=== PATIENT | female | born 2000 | race Hispanic/Latino ===

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

== ENCOUNTER 2019-05-23 14:42 | Emergency (ER) | payer MEDICAID, OTHER ==
[2019-05-23] MEDS ORDERED: SODIUM CHLORIDE 0.9% 1000ML 1,000 ML IV ONE (15:21)
[2019-05-23] MEDS ORDERED: ONDANSETRON HCL 4 MG/2 ML VIAL ONE (15:22)
[2019-05-23] MEDS ORDERED: HYOSCYAMINE SULFATE 0.125 MG TAB.SUBL SL ONE (15:22)
[2019-05-23 15:29] LABS: APPEARANCE,URINE Clear (CLEAR); BILIRUBIN,URINE Negative (NEGATIVE); COLOR,URINE Yellow (YELLOW); GLUCOSE, URINE (UA) Negative (NEGATIVE); KETONES,URINE 15 mg/dL (NEGATIVE); LEUKOCYTE ESTERASE ,URINE Moderate (NEGATIVE); NITRATE,URINE Negative (NEGATIVE); OCCULT BLOOD,URINE Moderate (NEGATIVE); PH,URINE 5.5 (5.0-8.0); PROTEIN,URINE Negative (NEGATIVE)
[2019-05-23 15:31] LABS: HCG,QUAL RESULT NEGATIVE (NEGATIVE)
[2019-05-23 15:43] LABS: BASOPHILS % (AUTO) 0.6 % (0.0-5.0); EOSINOPHILS % (AUTO) 0.2 % (0.0-8.0); HEMATOCRIT 42.6 % (36-48); LYMPHOCYTES % (AUTO) 24.5 % (21.0-51.0); MEAN CORPUSCULAR HEMOGLOBIN 29.8 pg (27.0-33.0); MONOCYTES % (AUTO) 9.1 % (3.0-13.0); NEUTROPHILS % (AUTO) 65.6 % (40.0-77.0); PLATELET COUNT (AUTO) 171 K/uL (130-400); RED BLOOD CELL COUNT(AUTO) 5.02 MIL/uL (4.00-5.50); RED CELL DISTRIBUTION WIDTH 13.4 % (11.0-15.5)
[2019-05-23 15:45] LABS: BACTERIA,URINE Few /HPF (None Seen); SQUAMOUS EPITHELIAL CELL,UR Rare /HPF (0-2); TRANSITIONAL EPI CELLS,URINE Few /HPF (None Seen)
[2019-05-23 15:46] LABS: MUCUS,URINE Few LPF (None Seen)
[2019-05-23 15:59] LABS: CREATININE 0.7 mg/dL (0.5-1.5)
[2019-05-23 16:05] LABS: ALBUMIN 4.5 g/dL (3.5-5.0); BILIRUBIN,TOTAL 0.5 mg/dL (0.2-1.0); TOTAL PROTEIN, SERUM 7.8 g/dL (6.0-8.3)
== END 2019-05-23 16:44 | disposition home or self-care (01) ==
LOC: EDH 14:42
DX: N30.00 Acute cystitis without hematuria (principal); R11.2 Nausea with vomiting, unspecified; R10.9 Unspecified abdominal pain
CPT/HCPCS: 36415; 76705; 80053; 81001; 81025; 83690; 85025; 96361; 96374; 99285; J2405; J7030

== ENCOUNTER 2024-07-31 18:05 | Emergency (ER) | payer OTHER ==
[~2024-07-31] VITALS: Ht 160 cm; Wt 97.5 kg
--- NOTE | 2024-07-31 19:37 | HMCIMG ---
US OB >14 WEEKS HISTORY: Right lower quadrant pain COMPARISON: None TECHNIQUE: ultrasound study was performed. Right lower abdominal ultrasound study was performed. FINDINGS: There is single intrauterine gestation with estimated gestational age of 16 weeks. heart rate is 153 beats per minute. The fetus is in breech presentation with longitudinal lie. weight is estimated to be 172 grams. Amniotic fluid volume is 11 centimeter. The placenta is located anteriorly. No evidence of placenta previa is seen. There is no evidence of nuchal cord. Appendix is not seen limiting evaluation IMPRESSION: 1. There is single intrauterine gestation with estimated gestational age of 16 weeks. heart rate is 153 beats per minute.
[2024-07-31 19:57] LABS: BASOPHILS # (AUTO) 0.02 K/uL (0.00-0.20); BASOPHILS % (AUTO) 0.2 % (0.0-5.0); EOSINOPHILS # (AUTO) 0.04 K/uL (0.00-0.70); EOSINOPHILS % (AUTO) 0.4 % (0.0-8.0); HEMATOCRIT 39.6 % (36-48); IMMATURE GRANULOCYTE ABSOLUTE 0.03 K/uL (0-1); LYMPHOCYTES # (AUTO) 1.7 K/uL (1.0-4.8); LYMPHOCYTES % (AUTO) 15.1 % (21.0-51.0); MEAN CORPUSCULAR HEMOGLOBIN 30.1 pg (27.0-33.0); MEAN CORPUSCULAR HGB CONC 34.8 g/dL (32.0-36.0); MEAN CORPUSCULAR VOLUME 86.3 fL (79-99); MONOCYTES # (AUTO) 0.9 K/uL (0.1-1.0); MONOCYTES % (AUTO) 7.8 % (3.0-13.0); NEUTROPHILS # (AUTO) 8.4 K/uL (1.8-7.7); NEUTROPHILS % (AUTO) 76.2 % (40.0-77.0); PLATELET COUNT (AUTO) 234 K/uL (130-400); RED BLOOD CELL COUNT(AUTO) 4.59 MIL/uL (4.00-5.50); RED CELL DISTRIBUTION WIDTH 13.5 % (11.0-15.5)
[2024-07-31 20:04] LABS: CREATININE 0.5 mg/dL (0.5-1.0); POTASSIUM 3.9 mmol/L (3.5-5.1)
--- NOTE | 2024-07-31 21:49 | ERN ---
ED Note History of Present Illness Stated Complaint: 16 WKS,SEVERE GUTIERREZ,NAUSEA,LIGHT HEADED Chief Complaint: Syncope Time Seen by MD: 18:07 Time Seen by Midlevel: 18:11 Dictation: 23-year-old female with with a history of low iron coming in complaining of feeling lightheaded, headache a near syncopal episode while standing up at work. Patient states she saw black but was still hearing voices and was sat down by her coworkers. Patient also states she had a few episodes of nausea and vomiting in the morning. Patient states she is 16 weeks , her OBGYN is Dr. Robles the last seen on the 24 of July. LMP was in March. G1, P0. 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 Denies having any vaginal pain, vaginal discharge, vaginal bleeding. Allergies: Coded Allergies: No Known Allergies (Unverified Allergy, Unknown, 07/31/24) Home Meds Active Scripts Nitrofurantoin Monohyd/M-Cryst (Macrobid 100 mg Capsule) 100 Mg Capsule, 1 CAP PO BID for 7 Days, #14 CAP 0 Refills Prov:MARK DEWEY MD 07/31/24 Acetaminophen with Codeine (Acetaminophen-Cod #3 Tablet) 300 Mg-30 Mg Tablet, 1 TAB PO Q6HPRN PRN for pain for 7 Days, #28 TAB 0 Refills Prov:MARK DEWEY MD 07/31/24 Past Medical History Past Medical History: No Pertinent History Surgical History: None LMP: Apr 13, 2024 : 1 Para: 0 Aborts: 0 RN Note Reviewed/Agreed w/PFSH: Yes Review of System Dictation Constitutional: Negative for fever,chills, and weight loss Eyes: Negative for injury, pain,redness, and discharge ENT: Negative for injury,pain or swelling Cardiovascular: Negative for chest pain, palpitations, and edema Respiratory: Negative for shortness of breath, cough, and wheezing, Abdomen/GI: Negative for abdominal pain, nausea, vomiting, diarrhea, and constipation Back: Negative for injury and pain : Negative for injury, bleeding and discharge MS/Extremity: Negative for injury and deformity Skin: Negative for rash, and discoloration Neuro: Negative for headache, weakness, numbness, tingling, and seizure Psych: Negative for suicide ideation, homicidal ideation, and hallucinations Review of Systems: was completed Initial Vital Sign VS Vital Signs Date Time Temp Pulse Resp B/P (MAP) Pulse Ox O2 Delivery O2 Flow Rate FiO2 07/31/24 18:16 97.9 75 16 132/94 98 Room Air 0 07/31/24 22:55 21 Physical Exam Dictation General: awake, alert, NAD Head/Face: Normocephalic, atraumatic Eyes: PERRL, EOMI, vision at baseline ENT: oral cavity clear, TMs clear, no signs of infection Neck: Trachea midline, supple, no nuchal rigidity Cardiovascular: RRR, normal S1/S2, No MRGs, no JVD Respiratory: CTAB, no respiratory distress, No rales or wheezes Abdomen: Soft, non-tender, non-distended, normal bowel sounds, no guarding or rebound. Skin: Warm, dry, normal turgor, no rash MS/Extremity: Pulses equal, no cyanosis, neurovascular intact, FROM Neuro: COAx4, GCS 15, strength 5/5, CN 2-12 intact, normal cerebellar exam, normal gait, Psych: Normal behavior, mood, and affect normal Results (Laboratory/Radiology) Laboratory/Radiology Laboratory Tests Test 07/31/24 19:46 07/31/24 21:59 White Blood Count 11.0 K/uL (4.8-10.8) H Red Blood Count 4.59 MIL/uL (4.00-5.50) Hemoglobin 13.8 g/dL (12.0-16.0) Hematocrit 39.6 % (36-48) Mean Corpuscular Volume 86.3 fL (79-99) Mean Corpuscular Hemoglobin 30.1 pg (27.0-33.0) Mean Corpuscular Hemoglobin Concent 34.8 g/dL (32.0-36.0) Red Cell Distribution Width 13.5 % (11.0-15.5) Platelet Count 234 K/uL (130-400) Mean Platelet Volume 10.9 fL (7.5-10.5) H Immature Granulocyte % (Auto) 0.3 % (0-1) Neutrophils (%) (Auto) 76.2 % (40.0-77.0) Lymphocytes (%) (Auto) 15.1 % (21.0-51.0) L Monocytes (%) (Auto) 7.8 % (3.0-13.0) Eosinophils (%) (Auto) 0.4 % (0.0-8.0) Basophils (%) (Auto) 0.2 % (0.0-5.0) Neutrophils # (Auto) 8.4 K/uL (1.8-7.7) H Lymphocytes # (Auto) 1.7 K/uL (1.0-4.8) Monocytes # (Auto) 0.9 K/uL (0.1-1.0) Eosinophils # (Auto) 0.04 K/uL (0.00-0.70) Basophils # (Auto) 0.02 K/uL (0.00-0.20) Absolute Immature Granulocyte (auto 0.03 K/uL (0-1) Nucleated Red Blood Cells 0.0 % (0.0-0.19) Sodium Level 137 mmol/L (136-145) Potassium Level 3.9 mmol/L (3.5-5.1) Chloride Level 102 mmol/L (101-111) Carbon Dioxide Level 26 mmol/L (21-32) Blood Urea Nitrogen 8 mg/dL (7-18) Creatinine 0.5 mg/dL (0.5-1.0) Glomerular Filtration Rate Calc 134 mL/min (>90) Random Glucose 73 mg/dL (70-105) Total Calcium 9.4 mg/dL (8.5-10.1) Urine Color YELLOW (YELLOW) Urine Appearance CLOUDY (CLEAR) H Urine pH 5.5 (5.0-8.0) Urine Specific [place] 1.026 (1.001-1.031) Urine Protein 10 mg/dL (NEGATIVE) H Urine Glucose (UA) NEGATIVE mg/dL (NEGATIVE) Urine Ketones 100 mg/dL (NEGATIVE) H Urine Occult Blood NEGATIVE (NEGATIVE) Urine Nitrate NEGATIVE (NEGATIVE) Urine Bilirubin NEGATIVE mg/dL (NEGATIVE) Urine Urobilinogen 0.2 mg/dL (0.2-1.0) Urine Leukocyte Esterase 500 Major/uL (NEGATIVE) H Urine RBC 2-5 /HPF (0-1) H Urine WBC 11-25 /HPF (0-1) H Urine Squamous Epithelial Cells RARE /HPF (0-2) Urine Bacteria RARE /HPF (None Seen) Urine Yeast RARE /HPF (None Seen) Labs Reviewed?: Yes ED Course ED Course Orders Procedure Category Date Status Time Cbc With Differential LAB 07/31/24 Complete 18:48 Basic Metabolic Panel LAB 07/31/24 Complete 18:48 Urinalysis Profile LAB 07/31/24 Complete 18:48 Us Ob >14 Weeks US 07/31/24 Resulted 18:48 0.9%Nacl 1000ml (Ns PHA 07/31/24 In Process 1000ml) 18:48 Culture Urine ANDIE 07/31/24 In Process 22:10 Ceftriaxone 1g Vial PHA 07/31/24 Complete (Rocephine 1g Inj) 23:30 Morphine 2mg Syg PHA 08/01/24 Complete (Morphine 2mg Syg) 00:00 Current Medications Medications (Trade) Dose Ordered Sig/Orion Route PRN Reason Start Time Stop Time Status Last Admin Dose Admin Ceftriaxone Sodium (ROCEphine 1G INJ) 1 gm ONCE ONCE IVPB 07/31/24 23:30 07/31/24 23:31 DC 08/01/24 00:21 Morphine Sulfate (morPHINE 2MG SYG) 2 mg ONCE ONCE IVP 08/01/24 00:00 08/01/24 00:01 DC 08/01/24 00:21 Sodium Chloride 1,000 ml @ 100 mls/hr Q10H STAT IV 07/31/24 18:48 08/01/24 04:47 07/31/24 22:42 Vital Signs Date Time Temp Pulse Resp B/P (MAP) Pulse Ox O2 Delivery O2 Flow Rate FiO2 07/31/24 22:55 98.2 75 18 117/63 99 Room Air* 0 21 07/31/24 18:16 97.9 75 16 132/94 98 Room Air 0 10:00 p.m. patient was signed out to me by mid-level provider. This is a 23-year-old with intrauterine came in with a near syncopal episode after working 11 hours shift standing on her feet all day. She did not feel well and felt very dizzy. She works in retail industry. OB ultrasound was done which showed intrauterine gestation at 16 weeks and heart rate was 158. Urinalysis was still pending. Patient received IV fluids 11:00 p.m.-I went over all the details with the patient and her and urinalysis has been reported which shows positive leuko esterase and too numerous to count white cells. I explained to them the possibilities and plan of care to give her a dose of IV antibiotic and outpatient antibiotic therapy upon discharge. They both verbalized full understanding Medical Decision Making MDM MDM: Differential diagnosis: Dehydration, vasovagal, UTI and sepsis, venous pooling with her standing job Rationale: Tests considered and ordered secondary to shared decision making i nclude: Previous outside records reviewed: Old ER visits. Risk of complication and/or morbidity or mortality of patient management: None Medications-Per medication reconciliation Need for hospitalization: Patient does not meet criteria for hospitalization. Need for emergency major/minor surgery: No There are no social concerns with this patient. Prescription drug management Prescriptions will include symptomatic care Patient's prior external medical records from other ER visits were reviewed by me as indicated. Prior testing and results from previous visits were reviewed. Prior tests were taken into account with medical decision making and resource utilization, independent historian/historians were used to obtain complete medical history. I independently interpreted the test that were performed, results were reviewed by me and considered findings on radiology if ordered. Medical management and examination interpretation discussions were had by me with other qualified healthcare professionals as indicated for the patient's care. Problem List Problem List: (1) Tension vascular headache (2) UTI (urinary tract infection) (3) Dehydration (4) Intrauterine normal (5) Syncope, near DX & DISP Disposition: Discharge Departure Impression: Primary Impression: Dehydration Additional Impressions: Intrauterine normal , UTI (urinary tract infection), Tension vascular headache Condition: Stable Scripts Nitrofurantoin Monohyd/M-Cryst (Macrobid 100 mg Capsule) 100 Mg Capsule 1 CAP PO BID for 7 Days, #14 CAP 0 Refills Prov: MRAK DEWEY MD 07/31/24 Acetaminophen with Codeine (Acetaminophen-Cod #3 Tablet) 300 Mg-30 Mg Tablet 1 TAB PO Q6HPRN PRN for pain for 7 Days, #28 TAB 0 Refills Prov: MARK DEWEY MD 07/31/24 Additional Instructions: Patient and the caregiver have been informed of all the diagnostic tests and the imaging conducted during the today's visit to the emergency room and has verbalized understanding of the results I have personally reviewed and interpreted all diagnostic exams performed here in the ER today as well as the vital signs documented by the nursing staff. The patient is now being discharged to home and should follow up with the primary care physician or the specialist as directed by the ER staff. Follow-up with primary care provider in 1 to 2 days. Take medications as directed here in the emergency room. Okay to continue home medications unless otherwise discussed during your visit in the emergency room today. Return to your nearest emergency room if symptoms worsen or if there is no improvement. Call 911 if you need immediate assistance. Take Tylenol or Motrin [id number] as needed and if no contraindications are present. Increase oral hydration. A wound culture or urine culture was ordered here in the emergency room department please follow-up with primary care provider and advise them to get repeat ports from our facility. If you had any Hugh wrap/splints that were applied here, please do not remove them until you see your primary care or specialty. Referrals: GISELLE ROBLES MD (PCP) I have examined patient, & reviewed all documents, & agreed W/ the Diagnosis, and Plan MARCIA NEGRETE NP Jul 31, 2024 21:49 MARK DEWEY MD Jul 31, 2024 23:41
[2024-07-31 22:09] LABS: ADD UA MICROSCOPIC YES; APPEARANCE,URINE CLOUDY (CLEAR); BILIRUBIN,URINE NEGATIVE (NEGATIVE); COLOR,URINE YELLOW (YELLOW); GLUCOSE, URINE (UA) NEGATIVE (NEGATIVE); KETONES,URINE 100 mg/dL (NEGATIVE); LEUKOCYTE ESTERASE ,URINE 500 Leu/uL (NEGATIVE); NITRATE,URINE NEGATIVE (NEGATIVE); OCCULT BLOOD,URINE NEGATIVE (NEGATIVE); PH,URINE 5.5 (5.0-8.0); PROTEIN,URINE 10 mg/dL (NEGATIVE); UROBILINOGEN,URINE 0.2 mg/dL (0.2-1.0)
[2024-07-31 22:11] LABS: BACTERIA,URINE RARE /HPF (None Seen); MUCUS,URINE RARE LPF (None Seen); SQUAMOUS EPITHELIAL CELL,UR RARE /HPF (0-2); YEAST,URINE BUDDING RARE /HPF (None Seen)
[2024-07-31] MEDS: 0.9%NACL 1000ML 1,000 ML IV STA (22:42)
--- NOTE | 2024-07-31 22:42 | NUR ---
ASSUME PT CARE FROM NOW
[2024-07-31] MEDS ORDERED: NITR100C4 PO (23:40)
[2024-07-31] MEDS ORDERED: ACET-2079 PO (23:40)
[2024-08-01] MEDS: cefTRIAXone 1G VIAL IVPB ONE (00:21)
[2024-08-01] MEDS: morPHINE 2 MG SYG IVP ONE (00:21)
[2024-08-01 00:40] VITALS: BP 121/62; PULSE 70; RESP 18; TEMP 98.1; O2SAT 98
== END 2024-08-01 00:40 | disposition home or self-care (01) ==
LOC: EDH 18:05
DX: O26.892 Other specified pregnancy related conditions, second trimester (principal); G44.1 Vascular headache, not elsewhere classified; E86.0 Dehydration; O23.42 Unspecified infection of urinary tract in pregnancy, second trimester; N39.0 Urinary tract infection, site not specified; Z3A.16 16 weeks gestation of pregnancy; Z79.899 Other long term (current) drug therapy
CPT/HCPCS: 99285; 76805; 80048; 85025; 87086; 81001; 36415; 96374; 96375; J2270; J0696

== ENCOUNTER 2024-10-17 11:28 | Emergency (ER) | payer OTHER ==
[~2024-10-17] VITALS: Ht 157.5 cm; Wt 104.3 kg
[~2024-10-17 11:28] MED LIST: ACET-2079 PO; NITR100C4 PO
[2024-10-17 12:42] LABS: BASOPHILS # (AUTO) 0.03 K/uL (0.00-0.20); BASOPHILS % (AUTO) 0.3 % (0.0-5.0); EOSINOPHILS # (AUTO) 0.05 K/uL (0.00-0.70); EOSINOPHILS % (AUTO) 0.5 % (0.0-8.0); HEMATOCRIT 37.9 % (36-48); IMMATURE GRANULOCYTE ABSOLUTE 0.04 K/uL (0-1); LYMPHOCYTES # (AUTO) 1.6 K/uL (1.0-4.8); MEAN CORPUSCULAR HEMOGLOBIN 30.1 pg (27.0-33.0); MEAN CORPUSCULAR HGB CONC 33.5 g/dL (32.0-36.0); MEAN CORPUSCULAR VOLUME 89.8 fL (79-99); MONOCYTES # (AUTO) 0.7 K/uL (0.1-1.0); MONOCYTES % (AUTO) 6.9 % (3.0-13.0); NEUTROPHILS # (AUTO) 7.9 K/uL (1.8-7.7); NEUTROPHILS % (AUTO) 76.9 % (40.0-77.0); PLATELET COUNT (AUTO) 242 K/uL (130-400); RED BLOOD CELL COUNT(AUTO) 4.22 MIL/uL (4.00-5.50); WHITE BLOOD COUNT (AUTO) 10.3 K/uL (4.8-10.8)
[2024-10-17 12:52] LABS: CREATININE 0.4 mg/dL (0.5-1.0); POTASSIUM 3.7 mmol/L (3.5-5.1)
[2024-10-17 13:57] LABS: APPEARANCE,URINE HAZY (CLEAR); BACTERIA,URINE FEW /HPF (None Seen); BILIRUBIN,URINE NEGATIVE (NEGATIVE); COLOR,URINE STRAW (YELLOW); GLUCOSE, URINE (UA) NEGATIVE (NEGATIVE); KETONES,URINE NEGATIVE (NEGATIVE); LEUKOCYTE ESTERASE ,URINE 500 Leu/uL (NEGATIVE); NITRATE,URINE NEGATIVE (NEGATIVE); OCCULT BLOOD,URINE NEGATIVE (NEGATIVE); PROTEIN,URINE NEGATIVE (NEGATIVE); SQUAMOUS EPITHELIAL CELL,UR FEW /HPF (0-2); UROBILINOGEN,URINE 0.2 mg/dL (0.2-1.0)
--- NOTE | 2024-10-17 14:07 | HMCIMG ---
US FBP WO NON-STRESS REASON: Decrease movement COMPARISON: None TECHNIQUE: Routine biophysical profile was performed. FINDINGS: There is a single fetus in breech position with positive motion and heartbeat, 172 BPM. Placenta is anterior and grade 2 with MARCO 15 cm. Biophysical profile score is 8 out of 8 points. IMPRESSION: 1. Single fetus in breech position, biophysical profile score 8 out of 8 points.
--- NOTE | 2024-10-17 14:17 | ERN ---
General Chief Complaint: OB>20 weeks gest. Stated Complaint: 26WKS ,NO MOVEMENT Time Seen by MD: 11:34 Time Seen by Midlevel: 11:34 Source: patient History of Present Illness Initial Comments 24-year-old female who presents to the emergency department due to decreased movement onset yesterday. Patient reports she was seen by Dr. Araceli PIKE this morning. Patient denies any abdominal pain, dysuria, vaginal bleeding, fevers or further associated symptoms. A0 currently 26 weeks . Patient states she has a follow up appointment with specialist next week due to having a knot in the umbilical cord. Allergies: Coded Allergies: No Known Allergies (Unverified Allergy, Unknown, 07/31/24) Home Meds Active Scripts Nitrofurantoin Monohyd/M-Cryst (Macrobid 100 mg Capsule) 100 Mg Capsule, 1 CAP PO BID for 7 Days, #14 CAP 0 Refills Prov:MARK DEWEY MD 07/31/24 Acetaminophen with Codeine (Acetaminophen-Cod #3 Tablet) 300 Mg-30 Mg Tablet, 1 TAB PO Q6HPRN PRN for pain for 7 Days, #28 TAB 0 Refills Prov:MARK DEWEY MD 07/31/24 Past Medical History Past Medical History: No Pertinent History Past Surgical History: None Female( History) LMP: Mar 30, 2024 : 1 Para: 0 Aborts: 0 ROS Dictation Constitutional: Negative for fever,chills, and weight loss Eyes: Negative for injury, pain,redness, and discharge ENT: Negative for injury,pain or swelling Cardiovascular: Negative for chest pain, palpitations, and edema Respiratory: Negative for shortness of breath, cough, and wheezing, Abdomen/GI: Negative for abdominal pain, nausea, vomiting, diarrhea, and constipation Back: Negative for injury and pain : Negative for painful urination, bleeding or discharge MS/Extremity: Negative for injury and deformity Skin: Negative for rash, and discoloration Neuro: Negative for headache, weakness, numbness, tingling, and seizure Psych: Negative for suicide ideation, homicidal ideation, and hallucinations Physical Exam Physical Exam Dictation General: awake, alert, no acute distress Head/Face: Normocephalic, atraumatic Eyes: PERRL, EOMI, normal conjunctiva ENT: oral cavity clear, oral mucosa moist Neck: Trachea midline, supple, no nuchal rigidity Cardiovascular: RRR, normal S1/S2 Respiratory: CTAB, no respiratory distress, no rales or wheezes Abdomen: Soft, non-tender, non-distended, no guarding or rebound. Skin: Warm, dry, normal turgor, no rash MS/Extremity: Pulses equal, no cyanosis, neurovascular intact, FROM Neuro: COAx4, GCS 15, no neurological deficits, normal gait Psych: Normal behavior, mood, and affect normal Results Laboratory and Microbiology Lab and Micro Result Laboratory Tests Test 10/17/24 12:24 10/17/24 12:54 White Blood Count 10.3 K/uL (4.8-10.8) Red Blood Count 4.22 MIL/uL (4.00-5.50) Hemoglobin 12.7 g/dL (12.0-16.0) Hematocrit 37.9 % (36-48) Mean Corpuscular Volume 89.8 fL (79-99) Mean Corpuscular Hemoglobin 30.1 pg (27.0-33.0) Mean Corpuscular Hemoglobin Concent 33.5 g/dL (32.0-36.0) Red Cell Distribution Width 13.0 % (11.0-15.5) Platelet Count 242 K/uL (130-400) Mean Platelet Volume 11.1 fL (7.5-10.5) H Immature Granulocyte % (Auto) 0.4 % (0-1) Neutrophils (%) (Auto) 76.9 % (40.0-77.0) Lymphocytes (%) (Auto) 15.0 % (21.0-51.0) L Monocytes (%) (Auto) 6.9 % (3.0-13.0) Eosinophils (%) (Auto) 0.5 % (0.0-8.0) Basophils (%) (Auto) 0.3 % (0.0-5.0) Neutrophils # (Auto) 7.9 K/uL (1.8-7.7) H Lymphocytes # (Auto) 1.6 K/uL (1.0-4.8) Monocytes # (Auto) 0.7 K/uL (0.1-1.0) Eosinophils # (Auto) 0.05 K/uL (0.00-0.70) Basophils # (Auto) 0.03 K/uL (0.00-0.20) Absolute Immature Granulocyte (auto 0.04 K/uL (0-1) Nucleated Red Blood Cells 0.0 % (0.0-0.19) Sodium Level 136 mmol/L (136-145) Potassium Level 3.7 mmol/L (3.5-5.1) Chloride Level 103 mmol/L (101-111) Carbon Dioxide Level 26 mmol/L (21-32) Blood Urea Nitrogen 4 mg/dL (7-18) L Creatinine 0.4 mg/dL (0.5-1.0) L Glomerular Filtration Rate Calc 141 mL/min (>90) Random Glucose 78 mg/dL (70-105) Total Calcium 9.0 mg/dL (8.5-10.1) Urine Color STRAW (YELLOW) Urine Appearance HAZY (CLEAR) Urine pH 7.0 (5.0-8.0) Urine Specific [place] 1.003 (1.001-1.031) Urine Protein NEGATIVE mg/dL (NEGATIVE) Urine Glucose (UA) NEGATIVE mg/dL (NEGATIVE) Urine Ketones NEGATIVE mg/dL (NEGATIVE) Urine Occult Blood NEGATIVE (NEGATIVE) Urine Nitrate NEGATIVE (NEGATIVE) Urine Bilirubin NEGATIVE mg/dL (NEGATIVE) Urine Urobilinogen 0.2 mg/dL (0.2-1.0) Urine Leukocyte Esterase 500 Major/uL (NEGATIVE) H Urine RBC 6-10 /HPF (0-1) H Urine WBC 11-25 /HPF (0-1) H Urine Squamous Epithelial Cells FEW /HPF (0-2) Urine Bacteria FEW /HPF (None Seen) Labs Reviewed?: Yes MDM MDM: Differential diagnosis: Threatened Miscarriage, spontaneous , decreased movement Rationale: 24-year-old female who presents to the emergency department due to decreased movement onset yesterday. Patient reports she was seen by Dr. Araceli PIKE this morning. Patient denies any abdominal pain, dysuria, vaginal bleeding, fevers or further associated symptoms. A0 currently 26 weeks . Per physical examination patient is in no acute distress, nonlabored breathing, abdomen is soft nontender. Labs obtained are nonspecific. Biophysical profile performed in the ED with score 8/8. Case was discussed with Dr. Charles the who recommended patient to be discharged home. Based on patient's presentation, biophysical profile, and recent OBGYN visit patient is stable condition for discharge. Patient was educated on findings and diagnosis. Advised to follow up with PCP/OBGYN. Return to the emergency department if any worsening symptoms. Patient verbalized understanding. Patient stable for discharge. There are no social concerns with this patient. I independently interpreted the test that were performed, results were reviewed by me and considered findings on radiology if ordered. Medical management and examination interpretation discussions were had by me with other qualified healthcare professionals as indicated for the patient's care. ED Course Orders Procedure Category Date Status Time Cbc With Differential LAB 10/17/24 Complete 12:11 Basic Metabolic Panel LAB 10/17/24 Complete 12:11 Urinalysis LAB 10/17/24 Complete W/Microscopic 12:11 Us Fbp Wo Non-Stress US 10/17/24 Resulted 12:11 Culture Urine ANDIE 10/17/24 In Process 13:58 Vital Signs Date Time Temp Pulse Resp B/P (MAP) Pulse Ox O2 Delivery O2 Flow Rate FiO2 10/17/24 14:45 97.9 94 16 122/65 99 Room Air* 0 21 10/17/24 13:10 94 16 127/70 97 Room Air* 0 21 10/17/24 12:29 97.9 72 20 134/90 99 Room Air 0 DX & DISP Disposition: Discharge Departure Impression: Primary Impression: Condition: Stable Additional Instructions: Discharge home. Rest. Follow up with primary care in 24 hours. Return to the ER for any acute changes or worsening symptoms. If any medications were prescribed take as directed. Okay to continue home medications unless otherwise discussed during your visit in the emergency room today. Patient was also advised to follow-up with primary care physician in 1 to 2 days for continued monitoring. Referrals: SELF,REFERRAL (PCP) I performed the substantive portion of the visit. I have reviewed and personall y made and approve the management plan that is documented in the notes by myself or the JORGE. I acknowledge full responsibility for the patient's management plan. GRETTA BRYANT Oct 17, 2024 14:17 JEM SINGH MD Oct 18, 2024 11:30
[2024-10-17 14:45] VITALS: BP 122/65; PULSE 94; RESP 16; TEMP 97.9; O2SAT 99
== END 2024-10-17 14:48 | disposition home or self-care (01) ==
LOC: EDH 11:28
DX: O36.8120 Decreased fetal movements, second trimester, not applicable or unspecified (principal); Z3A.26 26 weeks gestation of pregnancy; Z79.899 Other long term (current) drug therapy
CPT/HCPCS: 36415; 76819; 80048; 81001; 85025; 87086; 99284